=== PATIENT | male | born 1955 | race Caucasian/White ===

== ENCOUNTER → 2024-05-06 10:47 | Outpatient (REF) | payer OTHER, SELFPAY | LOC: HWRAD 10:47 | PROVIDERS: ATTENDING PHYSICIAN Physician Assistant Medical | DX: R05.1 Acute cough (principal) | CPT/HCPCS: 71046 ==

== ENCOUNTER 2024-12-08 06:21 | Day surgery (SDC) | payer MEDICARE, SELFPAY | END 2024-12-08 15:54 | disposition home or self-care (01) | LOC: GI 06:21 | PROVIDERS: ATTENDING PHYSICIAN Internal Medicine Gastroenterology | DX: K51.00 Ulcerative (chronic) pancolitis without complications (principal); D12.4 Benign neoplasm of descending colon; K63.5 Polyp of colon; K64.9 Unspecified hemorrhoids | CPT/HCPCS: 45385; 45380; 45381; 88305; 88342 ==